=== PATIENT | female | born 1940 | race Caucasian/White ===

== ENCOUNTER 2017-06-01 20:48 | Inpatient (IN) | payer OTHER ==
[~2017-06-01] VITALS: Ht 157.5 cm; Wt 70.2 kg
[~2017-06-01 20:48] MED LIST: ASPIR-LOW81 MG PO; ASPIR-LOX325 MG PO; BENICAR; CALTRATE-600 W600 MG PO; CELEXA40 MG PO; COZAAR 25MG25 MG/TAB PO; FOLIC ACID 11 MG/TA1 PO; K-DUR 10 MEQ T10 MEQ PO; KLONOPIN 1MG1 MG PO; LASIX 20MG TABL20 MG PO; METHOTREXA2.5 MG/TAB PO; PRILOSEC 20MG20 MG PO; PROTONIX 40MG T40 MG PO; TRAMADOL50 MG PO; TYLENOL 500MG500 MG PO; ZOCOR 20MG20 MG PO
[2017-06-01 22:27] VITALS: BP 114/77; PULSE 147; TEMP 97.6
--- NOTE | 2017-06-01 22:36 | NUR ---
Patient arrived to the medical floor via direct admit from [facility] by EMS. Patient arrived with cardizem drip infusing at a rate of 5mls and was discontinued at arrival to medical per order of sawmill tally clerk. Heart rate on arrival was 152 and atrial fibrilation. Telemetry placed on arrival to medical floor. INT to the right wrist flushes without concern. Underwear Finisher phoned to make aware of her arrival. EKG completed recording rate of 138 and A-fib. Family arrived at this time to be at bedside.
--- NOTE | 2017-06-01 23:08 | NUR ---
Cariology phoned and orders given. Orders entered and novelty printing machine operator is currently at bedside assessing patient.
[2017-06-01 23:43] LABS: BASO % 0.2 % (0.0-2.0); GRAN % 81.9 % (42.2-75.2); LYMPH # 1.4 (1.2-3.4); LYMPH % 12.8 % (20.0-51.0); MEAN CELL VOLUME 99 fl (80.0-100.0); MEAN CORPUSCULAR HGB CONC 35 g/dl (33.0-37.0); MEAN PLATELET VOLUME 11.1 fl (7.4-10.4); MONO # 0.5 (0.1-0.6); MONO % 4.7 % (1.7-9.3); PLATELET COUNT 190 K/mm3 (130-400); RED BLOOD COUNT 3.31 M/mm3 (4.10-5.30); REDCELL DISTRIBUTION WIDTH-CV 17.9 % (11.5-14.5)
--- NOTE | 2017-06-01 23:45 | NUR ---
Kai changed stat labs to be drawn in the morning, keeping blood cultures to be drawn stat. Consult requested for hospitalist for nausea, vomiting, diarrhea and abdominal pain. CONFIGURATION MANAGER phoned to make aware of consult. NS started per order and rate changed per hospitalist consult. Labs changed per request of CONFIGURATION MANAGER. Patient having difficulty stating current date, location, or time. Lab at bedside.
[2017-06-01 23:54] LABS: ALBUMIN 4.3 gm/dL (3.5-5.0); BILIRUBIN,TOTAL 3.5 mg/dL (0.0-1.0); CALCIUM 9.2 mg/dL (8.4-10.2); CREATININE, serum 1.45 mg/dL (0.52-1.25); MAGNESIUM 2.1 mg/dL (1.6-2.3); TOTAL PROTEIN 7.6 gm/dL (6.4-8.2)
[2017-06-01 23:55] LABS: HEMATOCRIT 32.6 % (37.0-47.0); HEMOGLOBIN 11.4 g/dl (12.5-16.0); MEAN CORPUSCULAR HEMOGLOBIN 34 pg (27.0-31.0)
[2017-06-02] VITALS (8 sets, daily range): BP systolic 107–162; BP diastolic 61–111; PULSE 52–111; TEMP 97.6–98.7
[2017-06-02 00:09] LABS: PARTIAL THROMBOPLASTIN TIME 31.4 SECONDS (26.0-37.0)
[2017-06-02 00:14] LABS: PROTHROMBIN TIME 22.9 SECONDS (9.7-12.8)
[2017-06-02 00:42] LABS: TROPONIN-I 2.26 ng/mL (0.000-0.034)
[2017-06-02] MEDS ORDERED: METHOTREXA2.5 MG/TAB PO (01:27)
[2017-06-02] MEDS ORDERED: CARDIZEM CD 12120 MG PO (01:32)
[2017-06-02] MEDS ORDERED: COUMADIN 3MG3 MG/TAB PO (01:33)
[2017-06-02] MEDS ORDERED: BUSPAR10 MG PO (01:33)
[2017-06-02] MEDS ORDERED: TEARS-ARTIFICIA15 ML OU (01:34)
[2017-06-02] MEDS ORDERED: CELEXA40 MG PO (01:35)
--- NOTE | 2017-06-02 02:14 | NUR ---
Med rec redone, heparin drip held, and ct of head completed per ACCESS DATABASE DEVELOPER request. While at CT patient also recieved a chest x-ray per order. Upon returning to the medical floor patient was able to start antibiotic infusion. Call recieved from ACCESS DATABASE DEVELOPER to start heparin, that head ct was negative. Heparin waiting for rocephin to complete.
[2017-06-02 05:28] LABS: BASO % 0.3 % (0.0-2.0); EOS % 0.1 % (0-4.0); GRAN # 5.7 (1.4-6.5); LYMPH # 1.3 (1.2-3.4); LYMPH % 17.6 % (20.0-51.0); MEAN CELL VOLUME 98 fl (80.0-100.0); MEAN CORPUSCULAR HGB CONC 34 g/dl (33.0-37.0); MEAN PLATELET VOLUME 11.4 fl (7.4-10.4); MONO # 0.4 (0.1-0.6); MONO % 4.7 % (1.7-9.3); PLATELET COUNT 150 K/mm3 (130-400); RED BLOOD COUNT 2.97 M/mm3 (4.10-5.30); REDCELL DISTRIBUTION WIDTH-CV 16.6 % (11.5-14.5)
[2017-06-02 05:32] LABS: HEMOGLOBIN 9.8 g/dl (12.5-16.0); MEAN CORPUSCULAR HEMOGLOBIN 33 pg (27.0-31.0)
[2017-06-02 05:36] LABS: INR 2.3 (0.8-3.0); PROTHROMBIN TIME 26.1 SECONDS (9.7-12.8)
[2017-06-02 05:37] LABS: CALCIUM 8.5 mg/dL (8.4-10.2); CREATININE, serum 1.28 mg/dL (0.52-1.25); POTASSIUM 3.3 mmol/L (3.4-5.0)
[2017-06-02 05:52] LABS: TROPONIN-I 1.37 ng/mL (0.000-0.034)
--- NOTE | 2017-06-02 07:30 | NUR ---
Antibiotics delayed this morning due to needing to establish a second IV site. Second site started with a 22gauge into the back of the left hand. Patient resting at this time.
--- NOTE | 2017-06-02 08:23 | NUR ---
Assessment completed. Pt resting upon entering room. Easily arouses to verbal stimuli. Pt oriented to self only, but is able to verbalize her needs. Pt reoriented frequently. No respiratory distress noted on room air. Tele on. VSS. Peripheral pulses palpable B/L. +BS X4, ABD soft and nontender. IVF/Heparin infusing per orders, IVX2 free of complications. Currently NPO for ABD ultrasound. Denies further needs. Bed alarm is on, call light within reach. Will continue to monitor.
[2017-06-02 09:49] LABS: COLLECTION METHOD CLEAN CATCH
[2017-06-02 10:06] LABS: PH 5 (5-8); URINE APPEARANCE Hazy; URINE BILIRUBIN Negative (NEGATIVE); URINE BLOOD 2+ (NEGATIVE); URINE COLOR Amber; URINE GLUCOSE Negative (NEGATIVE); URINE KETONE Negative (NEGATIVE); URINE LEUKOCYTE ESTERASE Negative (NEGATIVE); URINE NITRATE Negative (NEGATIVE); URINE PROTEIN(semi-quant) 2+ (NEGATIVE); URINE UROBILINOGEN Negative (NEGATIVE)
[2017-06-02 10:08] LABS: SQUAMOUS EPITHELIAL 0-2 /hpf; URINE BACTERIA Rare /hpf; URINE RBC 0-2 /hpf
--- NOTE | 2017-06-02 10:46 | NUR ---
SW met with patient and daughter to review discharge plan. Patient lives alone in [place], her daughter lives 6 blocks away. Patient uses a cane in the home, she has daily assistance in the mornings to assist with medications and morning routine through [facility], [facility]. Daughter has been setting up and monitoring medications at the home. Patient reports independence with ADLs, her goal is to return home upon discharge. SW to continue to follow.
--- NOTE | 2017-06-02 18:36 | NUR ---
Pt had uneventful shift, tele on. Continued to have loose stools. Denies N/V. IVF per orders. Reoriented frequently. Bed alarm remains on.
--- NOTE | 2017-06-02 21:00 | NUR ---
Patient assessment completed, vital signs are stable, patient denies pain or nausea at this time, she gets short of breath with exertion, she denies having any additional concerns at this time, currently she is resting calmly in bed, bad alarm is on, call light is in reach, will continue to monitor.
[2017-06-03] VITALS (20 sets, daily range): BP systolic 76–120; BP diastolic 56–86; PULSE 72–109; TEMP 97.4–98.6
--- NOTE | 2017-06-03 06:38 | NUR ---
Patient has been sleeping/resting well through the night, vital signs have been stable, she has reported some pain in her right shoulder, a warm pack was applied and she stated that it eased her pain, she has reported nausea and zofran was given, she has been up several times to the restroom with assistance, she has denied having any additional concerns, currently she is resting calmly in bed, call light is in reach, bed alarm is on, will continue to monitor.
[2017-06-03 06:39] LABS: BASO % 0.3 % (0.0-2.0); EOS % 0.5 % (0-4.0); GRAN # 5.4 (1.4-6.5); GRAN % 83.1 % (42.2-75.2); LYMPH # 0.7 (1.2-3.4); LYMPH % 11.1 % (20.0-51.0); MEAN CELL VOLUME 100 fl (80.0-100.0); MEAN CORPUSCULAR HGB CONC 35 g/dl (33.0-37.0); MEAN PLATELET VOLUME 11.8 fl (7.4-10.4); MONO # 0.3 (0.1-0.6); MONO % 4.5 % (1.7-9.3); PLATELET COUNT 166 K/mm3 (130-400); RED BLOOD COUNT 2.71 M/mm3 (4.10-5.30); REDCELL DISTRIBUTION WIDTH-CV 16.5 % (11.5-14.5)
[2017-06-03 06:47] LABS: HEMATOCRIT 27.1 % (37.0-47.0); HEMOGLOBIN 9.4 g/dl (12.5-16.0); MEAN CORPUSCULAR HEMOGLOBIN 35 pg (27.0-31.0)
[2017-06-03 06:50] LABS: CREATININE, serum 0.83 mg/dL (0.52-1.25); MAGNESIUM 1.9 mg/dL (1.6-2.3); POTASSIUM 3.4 mmol/L (3.4-5.0)
--- NOTE | 2017-06-03 08:21 | NUR ---
Pt was sleeping upon entering. Easily wakes. Orientated to self only. Able to reorientate to location. Able to verbalize needs and follows commands. Pt denies pain. No SOB, respirations equal and unlabored, NC in place with O2 flowing. Tele on, VSS. ABD slightly tender to palpation in LLQ. +Bowel sounds X4. Denies N/V/D. Currently NPO for cardioversion/MIS. IVF infusing per orders to RFA. INT to LH free of complications. Denies further needs, will continue to monitor. Bed alarm on. Call light within reach.
--- NOTE | 2017-06-03 13:04 | NUR ---
Angie left for MIS/Cardioversion via bed.
--- NOTE | 2017-06-03 13:20 | NUR ---
MD ARRIVED, TIME OUT PERFORMED. THROAT SPRAYED X 1 WITH HURRICAINE SPRAY BY BASSAM JUICE TESTER. PT VITALS STABLE. IMS/CARDIOVERSION TO BE PERFORMED.
--- NOTE | 2017-06-03 13:25 | NUR ---
BITE BLOCK PLACED, MIS PROBE DOWN AT 1321. SHOCK WITH 200J SYNCHED AT 1324 WITH PT TO SINUS RHYTHM. MIS PROBE OUT AT 1325. PT STABLE.
--- NOTE | 2017-06-03 13:30 | NUR ---
BRIEFLY OPENS EYES WHEN SPOKEN TO. POST CV EKG ORDERED. MD WANTS TO GIVE IV BOLUS AMIODARONE AND HAVE CT SCAN TO RULE OUT ABD ANEURYSM. FACILITATING THOSE PROCEDURES WITH BASKETBALL REFEREE. WILL CONTINUE TO MONITOR.
--- NOTE | 2017-06-03 14:01 | NUR ---
WAKES BRIEFLY WHEN SPOKEN TO, THEN BACK TO SLEEP QUICKLY. VITALS STABLE. AMIODARONE INFUSING PER ORDER, WILL GO TO CT SCAN PRIOR TO RETURNING TO FLOOR.
--- NOTE | 2017-06-03 14:16 | NUR ---
WAKES AND ANSWERS QUESTIONS APPROPRIATELY, THEN BACK TO SLEEP QUICKLY. GAVE REPORT TO ROCHELLE RODRIGUEZ. WILL TRANSFER CARE AT THIS TIME TO TARUN RODRIGUEZ, THEN PT WILL RETURN TO FLOOR AFTER AMIODARONE COMPLETES AND CT COMPLETED.
--- NOTE | 2017-06-03 15:31 | NUR ---
Pt taken to CT scan at this time. Alert & Oriented after her procedure.
--- NOTE | 2017-06-03 15:55 | NUR ---
Pt returned to EU from CT scan. No issues while in CT. Transfer to [facility] now. Cat has been notified.
--- NOTE | 2017-06-03 16:00 | NUR ---
Patient arrived back to room via bed. Post op vitals started, BP slightly low. NC in place with oxygen flowing. Tele on, NSR. IVF per orders. Will continue to monitor.
--- NOTE | 2017-06-03 16:03 | NUR ---
PT recommending chcf facility stay post discharge. BETY contacted [employer], patient's plan does not cover chcf facility out of network, and all facilities within 100 miles of [facility] are out of network. BETY contacted the patient's daughter to review discharge plan. Daughter reports that she and family would not consider chcf placement for the patient, as the patient has a large amount of family support in the [place] area. Patient is recieving some private pay (state padma) services through the [facility] at this time. SW reviewed home health and outpatient therapy services, daughter reports that these would need to be covered by insurance for the patient to consider them, as the patient has as a set income. SW to continue to follow.
--- NOTE | 2017-06-03 19:20 | NUR ---
REPORT GIVEN TO MICHAEL MOLINA. FAMILY AT BEDSIDE. DENIES NEEDS. TELE ON. IVF. CALL LIGHT IN REACH, BED ALARM ON.
--- NOTE | 2017-06-04 00:55 | NUR ---
RESUMED CARE OF PATIENT. ADMITTED FOR NVD. POSITIVE FOR CDIFF. HAS ALTERED MENTRAL STATUS, CONFUSED. WILL BE NPO AT MIDNIGHT DUE TO ECHO IN MORNING. ON POTASSIUM REPLACEMENT PROTOCOL. LAST BP WAS 105/68. PATIENT REPORTS NO PAIN AND HAS NO OTHER COMPLAINTS AT THIS TIME. CALL LIGHT WITHIN REACH. WILL CONTINUE TO MONITOR.
[2017-06-04 02:33] VITALS: BP 100/65; PULSE 78; TEMP 97.6
--- NOTE | 2017-06-04 05:32 | NUR ---
PATIENT HAD UNEVENTFUL NIGHT. HAD TO GET UP MULTIPLE TIMES THROUGHOUT THE NIGHT TO HAVE BM. HUNG YL. ON 2 L OXYGEN. BP'S HAVE BEEN A LITTLE LOW IN THE 100'S. CALL LIGHT WITHIN REACH. WILL GIVE REPORT TO DAY SHIFT NURSE.
[2017-06-04 07:37] VITALS: BP 100/63; PULSE 73; TEMP 97.5
[2017-06-04 07:40] LABS: CALCIUM 8.1 mg/dL (8.4-10.2); CREATININE, serum 0.9 mg/dL (0.52-1.25); POTASSIUM 4.2 mmol/L (3.4-5.0)
[2017-06-04 07:48] LABS: INR 2.7 (0.8-3.0); PROTHROMBIN TIME 30.6 SECONDS (9.7-12.8)
--- NOTE | 2017-06-04 10:44 | NUR ---
Pt A&O. Ambulates to bathroom and recliner with stand by assist and walker. Pt denies pain. Chair alarm on for intermittent confusion reported by night nurse. VSS-see flowsheet. IVF infusing to IV in right forearm without redness or infiltration. Telemetry in place. Call light in reach. O2 at 2 L via NC.
[2017-06-04 12:04] VITALS: BP 117/65; PULSE 85; PULSE 857; TEMP 97.4
[2017-06-04 16:00] VITALS: BP 109/65; PULSE 81; TEMP 97.4
--- NOTE | 2017-06-04 16:43 | NUR ---
BETY contacted [facility]. [facility] veterans service representative reports that the patient has 100% coverage for home health in-network providers. Only provider in this area that is in-network is [facility]. [facility] reports that the patient is covered for [id number], as long as the provider accepts assignment. No preauthorization required for in-network provider.
--- NOTE | 2017-06-04 18:38 | NUR ---
Pt on strict fluid restriction. Pt had urine measuring device in toilet but when voiding still misses the container. Accurate output dificult to obtain.
[2017-06-04 20:23] VITALS: BP 129/76; PULSE 85; TEMP 98.6
[2017-06-04 22:49] VITALS: BP 116/60; PULSE 87; TEMP 98.4
[2017-06-05 02:58] VITALS: BP 130/68; PULSE 76; TEMP 98.5
[2017-06-05 07:21] LABS: MEAN CELL VOLUME 103 fl (80.0-100.0); MEAN CORPUSCULAR HGB CONC 32 g/dl (33.0-37.0); MEAN PLATELET VOLUME 11.7 fl (7.4-10.4); PLATELET COUNT 165 K/mm3 (130-400); RED BLOOD COUNT 2.69 M/mm3 (4.10-5.30); REDCELL DISTRIBUTION WIDTH-CV 17.2 % (11.5-14.5)
[2017-06-05 07:28] LABS: HEMATOCRIT 27.6 % (37.0-47.0); HEMOGLOBIN 8.8 g/dl (12.5-16.0); MEAN CORPUSCULAR HEMOGLOBIN 33 pg (27.0-31.0)
--- NOTE | 2017-06-05 08:00 | NUR ---
Report received from MICHAEL Murphy. Pt ambulated to bathrm to have another loose stool and back to bed w/ SBA. Pt alert and confused. Pt denied pain. Call light in reach. Bed alarm on.
[2017-06-05 09:15] VITALS: BP 122/71; PULSE 83; TEMP 97.7
--- NOTE | 2017-06-05 10:20 | NUR ---
Pt ambulated with PT and back to her chair. Pt's breakfast tray brought in. Pt's about to have breakfast. Pt's calm at this time. No concern. Call light in reach. Chair alarm on.
--- NOTE | 2017-06-05 10:22 | NUR ---
Pt having breakfast in chair at this time. Pt denied pain. Call light in reach. Chair alarm on.
--- NOTE | 2017-06-05 11:47 | NUR ---
Pt resting in chair comfortably. Call light in reach. Chair alarm on.
[2017-06-05 12:13] VITALS: BP 110/73; PULSE 68; TEMP 98.2
--- NOTE | 2017-06-05 13:56 | NUR ---
Pt ambulated to bathrm with SBA to have loose BM and back to bed. Pt's family visiting. Call light in reach. Pt denied pain.
[2017-06-05 15:29] VITALS: BP 116/72; PULSE 85; TEMP 97.6
--- NOTE | 2017-06-05 15:58 | NUR ---
Visit attempted and pt sleeping soundly in bed. Call light in reach.
--- NOTE | 2017-06-05 17:05 | NUR ---
Pt had visitors and now sleeping soundly in bed. Call light in reach.
--- NOTE | 2017-06-05 18:19 | NUR ---
Pt ambulated to bathrm to urinate and back to bed w/ SBA. Pt having breakfast on the side of bed. Call light in reach. Bed alarm on.
--- NOTE | 2017-06-05 19:48 | NUR ---
Report given to MICHAEL Fernandez. Pt resting in bed comfortably. Call light in reach.
--- NOTE | 2017-06-05 20:30 | NUR ---
Initial shift assessment done- alert, confused as to time/date,,pleasant, Up to bathroom with walker-steady on feet. States shes been sleeping alot today- denies pain-states neck sore-repositioned pillow.
[2017-06-05 20:57] VITALS: BP 133/71; PULSE 64; TEMP 97.7
[2017-06-05 23:30] VITALS: BP 116/66; PULSE 81; TEMP 98.3
[2017-06-06 03:41] VITALS: BP 140/72; PULSE 93; TEMP 98.4
--- NOTE | 2017-06-06 06:00 | NUR ---
Did sleep well last night- remains confused, bed alarm on. Carlos assist with walker. Has small amount loose stool during the night-more formed.
[2017-06-06 07:09] LABS: INR 3.1 (0.8-3.0); PROTHROMBIN TIME 35.7 SECONDS (9.7-12.8)
[2017-06-06 07:21] VITALS: BP 127/71; PULSE 75; TEMP 97.7
--- NOTE | 2017-06-06 07:35 | NUR ---
Report received from MICHAEL Fernandez. Pt sleeping soundly in bed. Call light in reach.
--- NOTE | 2017-06-06 09:03 | NUR ---
Pt ambulated to bathrm to have stool and back to bed w/ SBA. Pt denied pain. Call light in reach.
--- NOTE | 2017-06-06 10:13 | NUR ---
Pt ambulated to bathrm to have soft formed stool and back to bed. No concern. Call light in reach.
[2017-06-06 11:09] VITALS: BP 136/79; PULSE 87; TEMP 97.3
--- NOTE | 2017-06-06 11:43 | NUR ---
Pt's habing lunch in chair at this time. No concern. Call light in reach.
--- NOTE | 2017-06-06 12:51 | NUR ---
Visit attempted and pt sleeping soundly in bed. Call light in reach. Bed alarm on.
--- NOTE | 2017-06-06 14:55 | NUR ---
Pt has visitors in . Pt denied pain. Call light in reach.
[2017-06-06 16:29] VITALS: BP 121/72; PULSE 78; TEMP 97.5
--- NOTE | 2017-06-06 18:32 | NUR ---
Pt finished her dinner in chair and watching TV in chair. Pt denied pain. No concern. Call light in reach.
--- NOTE | 2017-06-06 19:40 | NUR ---
Report given to MICHAEL Fernandez. pt sitting in chair and watching TV. Call light in reach.
--- NOTE | 2017-06-06 20:30 | NUR ---
Initial shift assessment done- confused as to date/year, pleasant, states has a bad headache- Dr. Galdamez called for tylenol order- tylenol given, Up to bathroom with assist- tolerated well
[2017-06-06 20:52] VITALS: BP 144/76; PULSE 89; TEMP 97.6
[2017-06-07] VITALS: BP 133/77; PULSE 79; TEMP 98.4
[2017-06-07 04:44] VITALS: BP 124/66; PULSE 78; TEMP 97.6
--- NOTE | 2017-06-07 06:00 | NUR ---
Quiet night- Tylenol effective for headache.
[2017-06-07 07:29] LABS: INR 3.4 (0.8-3.0); PROTHROMBIN TIME 40.2 SECONDS (9.7-12.8)
[2017-06-07 07:53] VITALS: BP 126/75; PULSE 60; TEMP 98.2
--- NOTE | 2017-06-07 08:37 | NUR ---
Report received from MICHAEL Fernandez. Pt having breakfast in bed. Pt denied pain. Call light in reach.
--- NOTE | 2017-06-07 10:48 | NUR ---
Dr. Dorman made a round with nursing team. Pt resting in bed comfortably and pt's daughter at the bedside. Call light in reach. Pt denied pain.
--- NOTE | 2017-06-07 10:56 | NUR ---
Initial visit; Patient thanked Triple Drum Operator for looking in on her and offering God's blessings.
[2017-06-07] MEDS ORDERED: FLAGYL500 MG PO (10:57)
--- NOTE | 2017-06-07 11:20 | NUR ---
SW met with patient and daughter to review discharge plan. The patient plans to return home with family today. SW reviewed options for home health, patient agreeable to home health services. Phone call to [facility] (only in-network provider in the area) to discuss set up of services. Patient may require a walker and oxygen as well, SW to continue to follow.
[2017-06-07 11:35] VITALS: BP 107/84; PULSE 80; TEMP 97.9
--- NOTE | 2017-06-07 11:57 | NUR ---
Pt resting in bed comfortably. Dr. Quinn's office informed that pt should go home today. Dr. Quinn will come up to discharge pt this "late afternoon" per office. Call light in reach.
--- NOTE | 2017-06-07 14:29 | NUR ---
SW met with patient and daughter. Patient is not requiring oxygen at this time, but PT is recommending a walker. SW reviewed DME options, patient and daughter choose [facility]. SW discussed home health options with patient and daughter, family chooses [facility], 2. [facility], 3. [facility]. Patient reports no additional needs at this time. SW contacted Home Health providers, [facility] no longer provides Medicare Home Health services, [facility] does not have a PT available this week. [facility] accepts patient, awaiting discharge orders. Referral and order faxed to [facility], walker to be delivered this afternoon.
--- NOTE | 2017-06-07 16:55 | NUR ---
Dr. Quinn's office noted that pt's been waiting for Dr. Quinn to send pt home. Dr. Quinn's in [place] office at this time and will be here around 1800 per his office. Pt and family informed about Dr. Quinn coming around 1800. Pt resting in bed comfortably in bed. Call light in reach.
--- NOTE | 2017-06-07 18:50 | NUR ---
Pt and daughter went over discharge instruction. Pt and daughter made sure Amiodoron 200mg PO QD and Plavix 75mg PO QD added and Diltazem PO dc'd. Pt went over f/u appnts. Pt and daughter were able to verbalize understanding of dc instruction. Pt escorted out in WC.
--- NOTE | 2017-06-08 09:39 | NUR ---
BETY faxed discharge orders to [facility].
== END 2017-06-07 18:56 | disposition home health service (06) | DRG 280 ==
LOC: MEDICAL 20:48
PROVIDERS: Family Medicine; Nurse Practitioner Family; Physician Assistant; ADMIT Internal Medicine Interventional Cardiology
DX: I21.4 Non-ST elevation (NSTEMI) myocardial infarction (principal); I50.23 Acute on chronic systolic (congestive) heart failure; A04.7 Enterocolitis due to Clostridium difficile; N17.9 Acute kidney failure, unspecified; I11.0 Hypertensive heart disease with heart failure; I48.91 Unspecified atrial fibrillation; Z79.01 Long term (current) use of anticoagulants; E86.0 Dehydration; I08.0 Rheumatic disorders of both mitral and aortic valves; E87.6 Hypokalemia; D64.9 Anemia, unspecified
CPT/HCPCS: 99232-AI; 99233-AI; 99239; C9113; J0282; J0696; J1644; J1940; J1956; J2250; J2405; J3010; J3480; J7030; J7060; Q9967

== ENCOUNTER 2017-07-16 09:14 | Day surgery (SDC) | payer OTHER ==
[2017-07-16] VITALS (12 sets, daily range): BP systolic 145–164; BP diastolic 89–112; PULSE 89–101; TEMP 97.6
[~2017-07-16] VITALS: Ht 157.6 cm; Wt 72.7 kg
[~2017-07-16 09:14] MED LIST changes: +BUSPAR10 MG PO; +CARDIZEM CD 12120 MG PO; +COUMADIN 3MG3 MG/TAB PO; +FLAGYL500 MG PO; +TEARS-ARTIFICIA15 ML OU
[2017-07-16 09:38] LABS: MEAN CELL VOLUME 98 fl (80.0-100.0); MEAN CORPUSCULAR HGB CONC 31 g/dl (33.0-37.0); PLATELET COUNT 274 K/mm3 (130-400); REDCELL DISTRIBUTION WIDTH-CV 15.9 % (11.5-14.5)
[2017-07-16 09:45] LABS: CALCIUM 9.1 mg/dL (8.4-10.2); CREATININE, serum 0.91 mg/dL (0.52-1.25); POTASSIUM 3.7 mmol/L (3.4-5.0)
[2017-07-16 09:55] LABS: HEMATOCRIT 35.4 % (37.0-47.0); HEMOGLOBIN 11.1 g/dl (12.5-16.0); MEAN CORPUSCULAR HEMOGLOBIN 31 pg (27.0-31.0)
[2017-07-16 10:01] LABS: INR 2.3 (0.8-3.0); PROTHROMBIN TIME 26.7 SECONDS (9.7-12.8)
[2017-07-16] MEDS ORDERED: CORDARONE200 MG/TAB PO (10:20)
[2017-07-16] MEDS ORDERED: PLAVIX 75MG TAB75 MG PO (10:20)
[2017-07-16] MEDS ORDERED: PRAVACHOL 20MG20 MG PO (10:31)
== END 2017-07-16 17:57 | disposition home or self-care (01) ==
LOC: EUO 09:14
PROVIDERS: Internal Medicine Interventional Cardiology
DX: R07.9 Chest pain, unspecified (principal); R94.39 Abnormal result of other cardiovascular function study; I25.2 Old myocardial infarction; I50.22 Chronic systolic (congestive) heart failure; I48.0 Paroxysmal atrial fibrillation; Z79.01 Long term (current) use of anticoagulants
CPT/HCPCS: C1760; C1894; J2250; J3010; Q9967

== ENCOUNTER 2019-06-26 16:24 | Emergency (ER) | payer MEDICARE ==
[~2019-06-26] VITALS: Ht 157.5 cm; Wt 72.7 kg
[~2019-06-26 16:24] MED LIST changes: +CORDARONE200 MG/TAB PO; +PLAVIX 75MG TAB75 MG PO; +PRAVACHOL 20MG20 MG PO
[2019-06-26 16:39] VITALS: BP 139/87; PULSE 99; TEMP 98.3
== END 2019-06-26 19:35 | disposition home or self-care (01) ==
LOC: COL.ER 16:24
DX: S23.3XXA Sprain of ligaments of thoracic spine, initial encounter (principal); S70.01XA Contusion of right hip, initial encounter; I10 Essential (primary) hypertension; Z79.01 Long term (current) use of anticoagulants; Y92.129 Unspecified place in nursing home as the place of occurrence of the external cause; W01.0XXA Fall on same level from slipping, tripping and stumbling without subsequent striking against object, initial encounter

== ENCOUNTER 2020-03-11 22:19 | Inpatient (IN) | payer MEDICARE ==
[~2020-03-11] VITALS: Ht 157.5 cm; Wt 76.4 kg
--- NOTE | 2020-03-11 01:15 | NUR ---
Pt arrived to the floor. Pt stated that she was not having much pain at this time. Pt lungs sounds were clear, pt heart sounds were normal S1 and S2 sounds. Pt bowel sounds were audible in all quads. Pt has ice applied to her right hip, and her right leg is on a pillow. Pt did not want to be moved while she wasn't having any pain. Galdino hose was removed off of her right leg. She did allow me to put the SCd's on her legs. She also allowed me to help her get into a yello gown. She's very concerned about surgery and she stated that she doesn't know how this all happened. She would answer some questions while doing her 5 page but she was very confused. She did let me know that she was able to press her call light if she needed me. Pt bed is in lowest position and she has her call light within reach.
--- NOTE | 2020-03-11 03:30 | NUR ---
Pt called out to the nursing station. She stated that her leg was hurting her very bad and she wanted to know if she could have something for pain. She was not able to give a number on the numeric scale. Pt was laying with her eyes closed while talking, she appeared to be in a lot of pain. Pt was given fentanyl 25 mcg at this time. Pt did have an elevated blood pressure so she has a new order placed for Coreg 3.125 mg and this was given as well. She is currently lying in bed and she has her call light within reach and bed alarm is on.
[2020-03-12] VITALS (7 sets, daily range): BP systolic 126–166; BP diastolic 65–91; PULSE 57–77; TEMP 97.9–98.9
--- NOTE | 2020-03-12 01:15 | NUR ---
During pt assessment there was a dressing on the right hip and on the right knee. This dressing was clean, dry and intact. There was gauze and tape at each site. While reading in pt chart it was noted that this dressing has been changed due to the previous right hip fix.
--- NOTE | 2020-03-12 01:15 | NUR ---
Pt arrived to the floor. Pt stated that she was not having much pain at this time. Pt lungs sounds were clear, pt heart sounds were normal S1 and S2 sounds. Pt bowel souns were audible in all quads. Pt has ice applied to her right hip, and her right leg is on a pillow. Pt did not wan tto be moved while she wasn't having pain. Galdino hose was removed off of her right leg. She did allow me to put the SCD's on her legs. She also allowe me to help her get into a yellow gown. She's very concerned about surgery and she stated that shw doesn't know how this all happened. She would answer some questions while doing her 5 page but she was very confused. She did let me knwo that she was able to press her call light if she needed something. Pt bed is in lowest positon and call light is within reach and alarm is on at this time.
[2020-03-12] MEDS ORDERED: IBU400 MG PO (02:16)
[2020-03-12] MEDS ORDERED: DULCOLAX S10 MG/SUPP RC (02:17)
[2020-03-12] MEDS ORDERED: TUSSIN DM CLEA120 ML PO (02:19)
[2020-03-12] MEDS ORDERED: MILK OF MA400 MG/52 PO (02:20)
[2020-03-12] MEDS ORDERED: SALINE 45 ML45 ML NS (02:20)
[2020-03-12] MEDS ORDERED: TYLENOL 500MG500 MG PO (02:21)
[2020-03-12] MEDS ORDERED: COREG 3.123.125 MG/T PO (02:22)
[2020-03-12] MEDS ORDERED: ASPIRIN 32325 MG/TAB PO (02:22)
[2020-03-12] MEDS ORDERED: NAMENDA5 MG PO (02:23)
[2020-03-12] MEDS ORDERED: ZYPREXA2.5 MG PO (02:24)
[2020-03-12] MEDS ORDERED: VITAMIN B12 1541 TAB PO (02:25)
[2020-03-12] MEDS ORDERED: COLACE 100100 MG/CAP PO (02:25)
[2020-03-12] MEDS ORDERED: EFFEXOR XR75 MG/CAP PO (02:26)
[2020-03-12] MEDS ORDERED: LASIX 20MG TABL20 MG PO (02:27)
[2020-03-12] MEDS ORDERED: LASIX 40MG TABL40 MG PO (02:28)
[2020-03-12] MEDS ORDERED: SYNTHROID 0.0.025 MG PO (02:28)
[2020-03-12] MEDS ORDERED: MYRBETR25MG PO (02:29)
[2020-03-12] MEDS ORDERED: COZAAR 50MG50 MG/TAB PO (02:29)
[2020-03-12] MEDS ORDERED: PLAQUENIL 200M200 MG PO (02:30)
--- NOTE | 2020-03-12 03:30 | NUR ---
Pt called out to the nurse station. She stated that her leg was hurting her very bad and she wanted to know if she could have something for pain. She was not able to give a number on the numeric pain scale. Pt was lying in bed with her eyes cloed while talking, she appeared to be in a lot of pain at this time. Pt was given fentanyl 25 mcg at this time. Pt did have an elevated blood pressure so she had a new order for Coreg 3.125 mg and this was given as well. she is currently lying in bed and she has her call light within reach and bed alarm is on .
[2020-03-12 05:05] LABS: COLLECTION METHOD CATHETER
[2020-03-12 05:14] LABS: URINE APPEARANCE Hazy; URINE COLOR Yellow
[2020-03-12 05:15] LABS: MUCOUS Present /lpf; PH 8 (5-8); SQUAMOUS EPITHELIAL None Seen /hpf; URINE BACTERIA None Seen /hpf; URINE BILIRUBIN Negative (NEGATIVE); URINE BLOOD Negative (NEGATIVE); URINE GLUCOSE Negative (NEGATIVE); URINE KETONE Negative (NEGATIVE); URINE LEUKOCYTE ESTERASE Negative (NEGATIVE); URINE NITRATE Negative (NEGATIVE); URINE PROTEIN(semi-quant) Negative (NEGATIVE)
--- NOTE | 2020-03-12 06:00 | NUR ---
Pt called out and she was hollering "Help" I went in to help her at this time. Pt stated that she was having pain. Pt was given pain medication at this time. Pt was also given her morning medication at this time. Pt is currently lying in bed and has her call light within reach and her bed alarm is on at this time.
[2020-03-12 06:42] LABS: BASO # 0.1 (0.0-0.2); EOS # 0.2 (0.0-0.7); EOS % 3.6 % (0-4.0); GRAN # 4.5 (1.4-6.5); GRAN % 73.5 % (42.2-75.2); LYMPH # 0.7 (1.2-3.4); LYMPH % 11.9 % (20.0-51.0); MEAN CELL VOLUME 102 fl (80.0-100.0); MEAN CORPUSCULAR HGB CONC 31 g/dl (33.0-37.0); MONO # 0.6 (0.1-0.6); MONO % 9.5 % (1.7-9.3); PLATELET COUNT 284 K/mm3 (130-400); REDCELL DISTRIBUTION WIDTH-CV 19.6 % (11.5-14.5)
[2020-03-12 06:43] LABS: HEMATOCRIT 31.5 % (37.0-47.0); HEMOGLOBIN 9.7 g/dl (12.5-16.0); MEAN CORPUSCULAR HEMOGLOBIN 31 pg (27.0-31.0)
[2020-03-12 06:59] LABS: ALBUMIN 3.2 gm/dL (3.5-5.0); BILIRUBIN,TOTAL 1.1 mg/dL (0.0-1.0); CALCIUM 8.2 mg/dL (8.4-10.2); CREATININE, serum 0.88 (0.52-1.25); TOTAL PROTEIN 6.5 gm/dL (6.4-8.2)
--- NOTE | 2020-03-12 07:16 | NUR ---
Reported off to MICHAEL Marroquin. Pt is currently lying in bed with her call light within reach and her bed is in lowest position and alarm is on at this time.
--- NOTE | 2020-03-12 08:23 | NUR ---
Lying in bed with eyes open. Patient is confused. Attempt to reorient but patient remains confused. Patient refuses to keep telemetry on and each time we try to reapply the patient removes. Patient keeps asking to put her clothes on. Explain that we will need to keep the hospital gown on at this time. Patient denies pain at this time. Dressings to right thigh and hip area from previous surgery CDI.
--- NOTE | 2020-03-12 10:42 | NUR ---
Pulper Operator attended clinical rounds with the team and patient was disoriented and upset. Pulper Operator contacted patient's daughter Elaine (ph#[phone]) to discuss discharge planning. Patient lives at [facility] and has been there since about last May. Patient sees Dr. Zaldivar for primary care. Patient either uses a walker or wheelchair for ambulation. Plan is for patient to return back to [facility] upon discharge. Patient has DPOA documents in EMR. BETY contacted Sandra at [facility] and faxed updates. SW to continue to follow.
--- NOTE | 2020-03-12 10:45 | NUR ---
Patient says she is having pain in her right hip and requests medication for pain. Fentanyl administered as prescribed. Patient denies further needs.
--- NOTE | 2020-03-12 11:26 | NUR ---
Lying in bed with eyes closed. Respirations even and unlabored. No signs or symptoms of discomfort noted at this time.
--- NOTE | 2020-03-12 12:03 | NUR ---
Patient sitting up in bed with eyes open yelling out. Asked patient what she needs and patient says that she needs the pillow taken out from under her right leg. Pillow removed. Patient begins to scream out again. Asked patient what she needs and she says that she wants the legs of the bed lowered. Lowered the legs of bed. Patient continues to yell out. Asked what she needed and the patient says that she wants the leg of the bed lowered. Explained that we already lowered the leg of the bed to the lowest it could go. Patient says tells this nurse she does not know what she is talking about. Refuses to reapply telemetry or wear oxygen. Patient begins to scream out again. Asked patient what she needs and she says that she wants out of the bed. Explain to the patient that she has a broken hip and we cannot get her out of the bed at this time and we are waiting to see if she will have surgery today or not. Patient asks who the men are in the hallway. Explain that there are male staff that work here in the hospital. Patient says to get a male in the room so they can help her out of the bed. Explain that we are not able to get her out of the bed due to her broken hip. Patient yells out at dietary staff to come in and help her out of the bed. Explain that they are dietary staff and are not able to come in and help her out of bed and that they are delivering other patients lunch trays. Patient tells this nurse to be quiet and leave.
--- NOTE | 2020-03-12 12:23 | NUR ---
Patient removed rosalva hose from left leg. Started to pull on catheter and was stopped and explained what catheter was for.
--- NOTE | 2020-03-12 14:40 | NUR ---
Lying in bed with eyes closed. Respirations even and unlabored. No signs or symptoms of discomfort noted at this time.
--- NOTE | 2020-03-12 16:35 | NUR ---
Patient verbalizes she is having pain in right hip. When asked to rate pain she says it just hurts. Administered Fentanyl as prescribed. Patient asks to get out of bed. Explain that her hip is broken and they are planning on fixing it tomorrow. Patient concerned she needs to get up out of bed. Explain that we just need her to stay in bed and relax so that she does not hurt her hip any further. Patient is confused. Attempt to reorient. Voices no further needs.
[2020-03-12 16:41] LABS: HEMOGLOBIN 10.9 g/dl (12.5-16.0)
[2020-03-12 16:47] LABS: HEMATOCRIT 33.9 % (37.0-47.0)
--- NOTE | 2020-03-12 23:48 | NUR ---
PATIENT DOING WELL TONIGHT. DID YELL OUT FOR HELP ONE TIME REQUESTING TO BE COVERED. REORIENTED PATIENT TO CALL LIGHT. PATIENT HAS BEEN RESTING IN BED ALL NIGHT. STATES SHE IS HAVING SOME PAIN BUT IS QUICKLY BACK TO SLEEP DURING CONVERSATION. TOOK SCHEDULED MEDICATIONS WITHOUT ISSUE. BARR TO DEPENDENT DRAINAGE WITH CLEAR YELLOW URINE. TO BE NPO AT MIDNIGHT NO FURTHER NEEDS AT THIS TIME. WILL CONTINUE TO MONITOR.
[2020-03-13] VITALS (14 sets, daily range): BP systolic 102–175; BP diastolic 49–91; PULSE 59–89; TEMP 97.5–98.4
[2020-03-13 05:46] LABS: FOLATE (FOLIC ACID) 18.4 ng/mL (>=4.0)
[2020-03-13 06:03] LABS: BASO # 0.1 (0.0-0.2); BASO % 0.8 % (0.0-2.0); EOS # 0.2 (0.0-0.7); EOS % 2.2 % (0-4.0); GRAN # 6.4 (1.4-6.5); GRAN % 75.1 % (42.2-75.2); HEMATOCRIT 33.1 % (37.0-47.0); HEMOGLOBIN 10.6 g/dl (12.5-16.0); LYMPH % 11.8 % (20.0-51.0); MEAN CELL VOLUME 101 fl (80.0-100.0); MEAN CORPUSCULAR HEMOGLOBIN 32 pg (27.0-31.0); MEAN CORPUSCULAR HGB CONC 32 g/dl (33.0-37.0); MEAN PLATELET VOLUME 10.2 fl (7.4-10.4); MONO # 0.8 (0.1-0.6); MONO % 9.7 % (1.7-9.3); PLATELET COUNT 289 K/mm3 (130-400); RED BLOOD COUNT 3.29 M/mm3 (4.10-5.30); REDCELL DISTRIBUTION WIDTH-CV 19.8 % (11.5-14.5)
[2020-03-13 06:15] LABS: CALCIUM 8.4 mg/dL (8.4-10.2); CREATININE, serum 0.89 (0.52-1.25); POTASSIUM 3.8 mmol/L (3.4-5.0)
[2020-03-13 06:18] LABS: INR 1.2 (0.8-3.0); PROTHROMBIN TIME 13.8 SECONDS (9.7-12.8)
--- NOTE | 2020-03-13 07:18 | NUR ---
Patient screaming out for help. Says that she is having pain in her right leg and would like pain medication. Will administer Quemado as prescribed. Patient is confused, attempt to reorient. Waite to dependent drainage. Dressings from previous surgery to right thigh and knee area all CDI.
--- NOTE | 2020-03-13 09:30 | NUR ---
Message left for the patient's daughter, Elaine Guerra, to contact this nurse to get consent for ORIF of right hip/femur to be performed this afternoon with Dr. Portillo.
--- NOTE | 2020-03-13 10:02 | NUR ---
Contacted Elaine Guerra, patient's daughter. Explained procedure and if there was a need for blood products. Reviewed consent. Elaine consents to procedure. MICHAEL Tran, second witness to get verbal consent for ORIF of right hip/femur from daughter. Consent completed and placed on chart.
--- NOTE | 2020-03-13 12:25 | NUR ---
Surgical scrub bath provided. Removed dressings from previous right femur surgery. Patient performs own oral hygiene when given toothbrush. Mihir with surgery here to take patient to surgery via bed.
--- NOTE | 2020-03-13 14:08 | NUR ---
Driver/Guide faxed updates to [facility]. Patient to have surgery this afternoon.
--- NOTE | 2020-03-13 15:27 | NUR ---
Patient returns to room from surgery. Arouses to name, remains confused. Patient drowsy and falls back to sleep. Dressings to right hip CDI. Patient had spinal so unable to feel or move lower extremities at this time. Waite to dependent drainage.
--- NOTE | 2020-03-13 15:59 | NUR ---
Lying in bed with eyes closed. Respirations even and unlabored. No signs or symptoms of discomfort noted. Dressings to right hip CDI. Patient moves head and arms but no movement in lower extremities noted.
--- NOTE | 2020-03-13 16:48 | NUR ---
BP continues to elevate. Contacted ANDRÉS Varner, and she will review meds and place order for PRN BP medications.
--- NOTE | 2020-03-13 17:46 | NUR ---
Offered patient her dinner tray and she says she does not want to eat at this time, feels like she needs more rest. Patient is able to move feet and legs. Denies pain currently. Denies further needs.
--- NOTE | 2020-03-13 18:25 | NUR ---
Lying in bed with eyes closed. Respirations even and unlabored. No signs or symptoms of discomfort noted.
--- NOTE | 2020-03-13 23:19 | NUR ---
PATIENT DOING WELL TONIGHT. ALERT BUT CONFUSED. IS YELLING OUT FOR HELP AND STATES SHE DOES NOT WANT TO BE LEFT ALONE AND WOULD LIKE SOMEONE TO TALK WITH HER, EXPLAINED THAT I AM WORKING AND CANNOT STAY TO CHAT. PATIENT STATES SHE IS IN PAIN, PRN NORCO GIVEN. X7 INCISIONS CDI WITH GAUZE AND TEGADERM. BARR TO DEPENDENT DRAINAGE WITH CLEAR YELLOW URINE NOTED. PATIENT REFUSED TO EAT DINNER. CURRENTLY RESTING IN BED, CALL LIGHT WITHIN REACH. NO FURTHER NEEDS AT THIS TIME. WILL CONTINUE TO MONITOR.
[2020-03-14 00:11] VITALS: BP 122/54; PULSE 84; TEMP 98.9
[2020-03-14 03:44] VITALS: BP 115/47; PULSE 76; TEMP 98.4
[2020-03-14 06:06] LABS: BASO # 0.1 (0.0-0.2); BASO % 0.6 % (0.0-2.0); EOS # 0.2 (0.0-0.7); GRAN # 6.1 (1.4-6.5); GRAN % 75.6 % (42.2-75.2); LYMPH # 0.9 (1.2-3.4); LYMPH % 11.2 % (20.0-51.0); MEAN CELL VOLUME 102 fl (80.0-100.0); MEAN CORPUSCULAR HGB CONC 32 g/dl (33.0-37.0); MEAN PLATELET VOLUME 9.8 fl (7.4-10.4); MONO # 0.8 (0.1-0.6); MONO % 10.2 % (1.7-9.3); PLATELET COUNT 258 K/mm3 (130-400); RED BLOOD COUNT 2.94 M/mm3 (4.10-5.30); REDCELL DISTRIBUTION WIDTH-CV 19.8 % (11.5-14.5)
[2020-03-14 06:13] LABS: HEMATOCRIT 30.1 % (37.0-47.0); HEMOGLOBIN 9.5 g/dl (12.5-16.0); MEAN CORPUSCULAR HEMOGLOBIN 32 pg (27.0-31.0)
[2020-03-14 06:26] LABS: CALCIUM 7.7 mg/dL (8.4-10.2); CREATININE, serum 0.88 (0.52-1.25); POTASSIUM 3.5 mmol/L (3.4-5.0)
[2020-03-14 08:00] VITALS: BP 147/65; PULSE 76; TEMP 98.2
--- NOTE | 2020-03-14 09:50 | NUR ---
Pt awake and confused, no C/O pain at this time, shift assessments complete, left Pt call light in reach, bed in lowest position, alarm on.
--- NOTE | 2020-03-14 14:37 | NUR ---
[facility] faxed updates to [facility]. SW contacted patient's daughter Eliane to provide update. BETY advised that PT/OT evaluated patient today and that patient continues to be disoriented. SW notified Elaine of patient's room change. SW to continue to follow.
--- NOTE | 2020-03-14 19:48 | NUR ---
Pt resting in the room, Pt has some underlying confusion. No other issues noted, VS have remained stable.
[2020-03-14 20:05] VITALS: BP 137/55; PULSE 71; TEMP 99.5
--- NOTE | 2020-03-14 21:00 | NUR ---
PT TAKES HS MEDS WITHOUT PROBLEM, INCLUDING NORCO FOR RT LEG PAIN. HAS BARR CATHETER TO BSD WITH YELLOW URINE. GAUZE DRSGS TO RIGHT HIP X5, OLD DRAINAGE TO UPPER DRSG. PT IS ALERT X2. USES CALL LIGHT AND YELLS FOR HELP WHEN NEEDED. SL TO LEFT FA FLUSHED WELL.
--- NOTE | 2020-03-15 | NUR ---
AFTER PROVIDING CHICKEN NOODLE SOUP FOR PT, SHE THEN REFUSED TO EAT IT. IS NOW RESTING QUIETLY WITH EYES CLOSED.
[2020-03-15 00:02] VITALS: BP 112/39; PULSE 65; TEMP 99.1
[2020-03-15 04:35] VITALS: BP 153/68; PULSE 77; TEMP 97.7
--- NOTE | 2020-03-15 04:53 | NUR ---
MEDICATED WITH NORCO 1 TAB AT THIS TIME FOR PAIN TO RIGHT HIP.
[2020-03-15 06:36] LABS: BASO # 0.1 (0.0-0.2); BASO % 0.7 % (0.0-2.0); EOS # 0.3 (0.0-0.7); EOS % 3.4 % (0-4.0); GRAN # 5.6 (1.4-6.5); GRAN % 77.2 % (42.2-75.2); LYMPH # 0.6 (1.2-3.4); LYMPH % 8.5 % (20.0-51.0); MEAN CELL VOLUME 101 fl (80.0-100.0); MEAN CORPUSCULAR HGB CONC 32 g/dl (33.0-37.0); MEAN PLATELET VOLUME 10.1 fl (7.4-10.4); MONO # 0.7 (0.1-0.6); MONO % 9.9 % (1.7-9.3); PLATELET COUNT 239 K/mm3 (130-400); RED BLOOD COUNT 2.84 M/mm3 (4.10-5.30); REDCELL DISTRIBUTION WIDTH-CV 19.6 % (11.5-14.5)
[2020-03-15 06:43] LABS: CREATININE, serum 0.84 (0.52-1.25); POTASSIUM 3.1 mmol/L (3.4-5.0)
[2020-03-15 06:47] LABS: HEMATOCRIT 28.7 % (37.0-47.0); HEMOGLOBIN 9.3 g/dl (12.5-16.0); MEAN CORPUSCULAR HEMOGLOBIN 33 pg (27.0-31.0)
[2020-03-15 07:46] VITALS: BP 143/75; PULSE 77; TEMP 98.5
--- NOTE | 2020-03-15 09:40 | NUR ---
HOSPITALIST CARE TEAM ROUNDING, SEE ORDERS.
--- NOTE | 2020-03-15 09:50 | NUR ---
DC'D BARR CATH PER ORDERS. NOTED 450 CC OF CLEAR ZANA URINE. PATIENT TOLERATED WELL. DISCHARGE TO SNF PENDING.
--- NOTE | 2020-03-15 10:05 | NUR ---
The patient is to discharge today, 03/15 back to [facility] at 1100. BETY contacted contacted the patient's daughter Elaine via telephone to inform her of the transport time and to presented IM form. She understoood the form and gave SW persmission to sign on her behalf. Elaine requested the copy sent in the discharge packet. Placed in packet. The original was placed in the chart. The team was in agreeance with the transport time. SW faxed updates and discharge orders. There are no additonal needs at this time.
[2020-03-15 10:21] VITALS: BP 143/75; PULSE 77; TEMP 98.5
[2020-03-15 10:25] VITALS: BP 143/75; PULSE 77; TEMP 98.5
--- NOTE | 2020-03-15 11:40 | NUR ---
PATIENT DISCHARGING BACK TO [facility]. CALLED REPORT TO NURSE. SOSA STARKS'D LEFT FA IV SITE. PATIENT ASSISTED WITH LIFT INTO AND DISCHARGED WITH [facility]. GAVE KAI WHAKARURUHAU INFO PACKET. PATIENT SENT WITH PERSONAL BELONGINGS. PATIENT DISCHARGED.
== END 2020-03-15 11:40 | DRG 481 ==
LOC: MEDICAL 22:19 → SURG 03-14 10:06
PROVIDERS: Nurse Anesthetist, Certified Registered; Nurse Practitioner Family; Orthopaedic Surgery Sports Medicine; Physician Assistant; ADMIT Student in an Organized Health Care Education/Training Program
PROC: 0QP604Z Removal of Internal Fixation Device from Right Upper Femur, Open Approach (ICD-10-PCS; 2020-03-13)
PROC: 0QSB06Z Reposition Right Lower Femur with Intramedullary Internal Fixation Device, Open Approach (ICD-10-PCS; 2020-03-13)
PROC: 0QS606Z Reposition Right Upper Femur with Intramedullary Internal Fixation Device, Open Approach (ICD-10-PCS; principal; 2020-03-13 16:00)
DX: M80.051A Age-related osteoporosis with current pathological fracture, right femur, initial encounter for fracture (principal); I50.22 Chronic systolic (congestive) heart failure; I42.9 Cardiomyopathy, unspecified; S72.141A Displaced intertrochanteric fracture of right femur, initial encounter for closed fracture; M80.851A Other osteoporosis with current pathological fracture, right femur, initial encounter for fracture; M47.9 Spondylosis, unspecified; E78.5 Hyperlipidemia, unspecified; I48.0 Paroxysmal atrial fibrillation; I11.0 Hypertensive heart disease with heart failure; I25.2 Old myocardial infarction; I08.0 Rheumatic disorders of both mitral and aortic valves; F03.90 Unspecified dementia, unspecified severity, without behavioral disturbance, psychotic disturbance, mood disturbance, and anxiety; K20.9 Esophagitis, unspecified; D64.9 Anemia, unspecified; F41.9 Anxiety disorder, unspecified; F32.9 Major depressive disorder, single episode, unspecified; E03.9 Hypothyroidism, unspecified; M06.9 Rheumatoid arthritis, unspecified; M81.0 Age-related osteoporosis without current pathological fracture; Z95.810 Presence of automatic (implantable) cardiac defibrillator; Z79.82 Long term (current) use of aspirin; Z88.2 Allergy status to sulfonamides; Z88.6 Allergy status to analgesic agent
CPT/HCPCS: 99223-AI; 99231-AI; 99232-AI; 99239; A9284; C1713; C1769; J0690; J2250; J2704; J3010; J7030